=== PATIENT | female | born 1965 | race Caucasian/White ===

== ENCOUNTER 2018-10-24 18:13 | Observation (INO) | payer OTHER ==
[2018-10-24] MEDS ORDERED: Lorazepam 1 MG TAB ONE (18:32)
[2018-10-24 19:05] LABS: #Eosinphils 0.1 thou/uL (0.0-0.7); #Lymphocytes 2.3 thou/uL (1.20-3.40); #Monocytes 0.7 thou/uL (0.11-0.59); #Neutrophils 5.4 thou/uL (1.40-6.50); %Basophils 0.5 % (0.0-1.0); %Eosinophils 0.9 % (0.0-10.0); %Lymphocytes 26.7 % (21.0-51.0); %Monocytes 8.2 % (0.0-10.0); %Neutrophils 63.7 % (42.0-75.0); Hemoglobin 12.9 g/dL (12.0-16.0); Mean Corpuscular HGB CONC 32.4 g/dL (32.0-36.0); Mean Corpuscular Hemoglobin 26.6 pg (27.0-31.0); Mean Corpuscular Volume 82.3 fL (78.0-98.0); Mean Platelet Volume 7.2 fL (7.4-10.4); Platelet Count 349 thou/uL (130-400); RBC Distribution Width 12.7 % (11.5-14.5); Red Blood Cell (RBC) Count 4.86 mill/uL (4.20-5.40); White Blood Cell (WBC) Count 8.5 thou/uL (4.8-10.8)
[2018-10-24 19:12] LABS: INR-International Normal Ratio 0.9; Prothrombin Time 12.7 SEC (12.0-14.7)
[2018-10-24 19:13] LABS: D-Dimer Test 1.57 *mcg/mL (0.27-0.43)
--- NOTE | 2018-10-24 19:19 | RAD ---
PORTABLE CHEST: 10/24/18 HISTORY: Shortness of breath, chest pain. Focal nodular density in the left lung base may be vascular; however, underlying atelectasis, infiltr ate or nodule cannot be completely excluded. Lungs are otherwise clear. Vascular markings normal. Heart and mediastinum un remarkable. IMPRESSION: Indeterminate nodular density left lung base. Recommend elective followup AP and lateral views of the chest. POS: [facility]
[2018-10-24 19:27] LABS: ALT (SGPT) 46 U/L (8-55); AST (SGOT) 57 U/L (5-34); Albumin 3.6 g/dL (3.5-5.0); Alkaline Phosphatase 123 U/L (40-150); Anion Gap 14 mmol/L (10-20); BUN (Urea Nitrogen) 12 mg/dL (9.8-20.1); Bilirubin, Total 0.5 mg/dL (0.2-1.2); Calc. Creatinine Clearance 0 mL/min (70-130); Calcium 9.3 mg/dL (7.8-10.44); Carbon Dioxide 24 mmol/L (22-29); Chloride 104 mmol/L (98-107); Estimated GFR-MDRD 85; Globulin 3.6 g/dL (2.4-3.5); Glucose 122 mg/dL (70-105); Potassium 4.5 mmol/L (3.5-5.1); Protein, Total 7.2 g/dL (6.0-8.3); Sodium 137 mmol/L (136-145)
[2018-10-24] MEDS ORDERED: Lorazepam 2 MG/ML VIAL ONE (19:58)
--- NOTE | 2018-10-24 20:27 | CT ---
CTA CHEST WITH CONTRAST: 10/24/18 Multiple axial tomograms obtained through the chest with IV enhancement Following pulmonary angio protocol. Multiplanar reconstruction and 3D postprocessing obtained. INDICATIONS: Shortness of breath. FINDINGS: Pulmonary arteries show adequate opacification. No evidence of pulmonary Embolus identified. The lungs showed no evidence of infiltrate or effusion. Mild atelectasis in the lung bases posteriorl y. Thoracic aorta unremarkable with no evidence of dissection. Mediastinum unremarkable. IMPRESSION: 1. No evidence of pulmonary embolus. 2. No acute lung process. POS: [facility]
[2018-10-24 20:33] LABS: Bilirubin Negative (Negative); Blood, Urine Negative (Negative); Clarity CLEAR (Clear); Glucose, Urine (Dipstick) Negative (Negative); Leukocyte Negative (Negative); Nitrite Negative (Negative); Protein, Urine (Dipstick) Negative (Neg-Trace); Specific Gravity, Urine 1.016 (1.002-1.036); Urobilinogen 0.2 mg/dL (0.2-1.0)
--- NOTE | 2018-10-24 20:42 | CT ---
CT CERVICAL SPINE NONCONTRAST: 10/24/18 at 7:22 p.m. HISTORY: 53-year-old female status post recent cervical spine surgery five days ago presents with dyspnea and cervicalgia at surgical site. COMPARISON: None. FINDINGS: There are anterior metallic plate and screws at C5, C6, and C7. There are metallic markers for interb omar spacers at C5-6 and C6-7 disc spaces, which are slightly widened. There has been shaving of the i nferior end plates of C5 and C6. The rest of the vertebral body heights are maintained. Alignment is normal. There is a moderate sized intermediate-density fluid collection containing a small amount of gas in the retropharyngeal space, from the C1-2 level down to the T1-2 level. This collection displac es the larynx and hypopharynx anteriorly. The right piriform sinus is partially effaced. IMPRESSION: 1. Status post anterior cervical discectomy and fusion at C5-6-7. 2. Moderate sized retropharyngeal fluid collection consistent with recent postsurgical hematoma. 3. In general, this soon after surgery, it is difficult to distinguish expected usual postsurgic al hematomas from infected ones, on any imaging modality. LULA Amin POS: [facility]
[2018-10-24] MEDS ORDERED: Morphine 4 MG/ML VIAL ONE (21:06)
[2018-10-24] MEDS ORDERED: Dexamethasone 10 MG/ML VIAL ONE (21:57)
[2018-10-24] MEDS ORDERED: Fleet Enema 133 ML BOT PR PRN (22:03)
[2018-10-24] MEDS ORDERED: Acetaminophen 325 MG TAB PO PRN (22:03)
[2018-10-24] MEDS ORDERED: Promethazine HCl 25 MG/ML VIAL IM PRN (22:03)
[2018-10-24] MEDS ORDERED: Milk Of Magnesia 30 ML UDCUP PO PRN (22:03)
[2018-10-24] MEDS ORDERED: Acetaminophen/Codeine 30-300mg Tablet PO PRN (22:03)
[2018-10-24] MEDS ORDERED: traMADol HCl 50 MG TAB PO PRN (22:03)
[2018-10-24] MEDS ORDERED: tiZANidine HCl 4 MG TAB PO PRN (22:03)
[2018-10-24] MEDS ORDERED: Bisacodyl 10 MG SUPP PR PRN (22:03)
[2018-10-24] MEDS ORDERED: Mag-Al 1200 mg/1200 mg/30 ML UDCUP PO PRN (22:03)
[2018-10-24] MEDS: Sodium Chloride 0.9% 1,000 ML IV SCH (23:42)
[2018-10-24] MEDS: HYDROcodone/Acetaminophen 7.5/325 mg Tablet PO PRN (23:43)
[2018-10-24 23:57] VITALS: BMI 33.0
--- NOTE | 2018-10-25 00:42 | HP ---
30-minute patient evaluation, in which greater than 50% of the exam was spent counselling and coordinating the patient's care. Remainder of the exam was spent in reviewing the patient's medical records and appropriate imaging studies. CHIEF COMPLAINT: Feeling of breathing difficulties, status post C5-C6 and C6-C7 ACDF. HISTORY OF PRESENT ILLNESS: Ms. Humphrey is a 53-year-old female, presents to [facility] for the above complaints. She underwent an ACDF, C5-C6 and C6-C7 on Friday with Dr. Avilez. The patient notes, over the past day or two, feelings of difficulty breathing, especially when lying flat. She is tolerating a regular diet and is able to swallow pills, but states she does have a feeling of fullness in her throat. She does have a history of anxiety. She is also on 1 mg daily prednisone for history of [place] disease. A CT scan was obtained that shows some minimal displacement of the larynx with normal postoperative fluid collection in the prevertebral space. The patient's accompanies her and provides some history. PHYSICAL EXAMINATION: The patient is slightly sleepy, but just received some narcotic pain medication. Otherwise, she awakens easily and is appropriate. She appears to have full strength in the right upper and right lower extremity with baseline weakness in the left lower extremity after a previous back surgery and some mild weakness in the left upper extremity, which the patient states is baseline. She does complain of some continued shoulder pain, but again is able to completely lift the hand off the bed and has only mild weakness, especially into the shoulder and deltoid region. There is no tenderness to palpation around the incision and it is covered with Steri-Strips and is dry. There is no fullness at the incision site and no tension on the wound. There was no active drainage from the wound. IMPRESSION AND DIAGNOSES: Status post C5 through C7 anterior cervical discectomy and fusion on 10/19/[address] Avilez. PLAN: Given the patient's feeling of fullness and difficulty swallowing, we will admit her for overnight observation including observation of her oxygen status. Again, the patient is tolerating pills. I have discussed with her normal postoperative healing and that it will take our bodies 12 to 18 months postoperatively to heal and some continued posterior neck and left upper extremity symptoms will improve with time. The patient understands. I will put her on a full liquid diet and she may have pills as tolerated. We will provide 10 mg of Decadron in the ER and continue her prednisone for [place] disease. We hope to discharge her tomorrow after some observation and a dosage of steroids. Please call with any changes in the patient's neurologic status. Job ID: [id number]
[2018-10-25] MEDS: HYDROcodone/Acetaminophen 7.5/325 mg Tablet PO PRN ×3 (05:07→12:26)
[2018-10-25] MEDS: Sodium Chloride 0.9% 1,000 ML IV SCH (11:16)
[2018-10-25 11:39] VITALS: BP 136/86; TEMP 97.1
--- NOTE | 2018-10-25 12:06 | PRG ---
DATE OF SERVICE: 10/25/[address] Gilson Hyatt. Ms. Humphrey is now hospital day #1, being readmitted for some feelings of swallowing difficulties and breathing difficulties. She states today, she is feeling slightly better. She continues to have left upper extremity complaints and intermittent functional subjective weakness in the arm and lower extremity, again that is baseline. At this time, she did receive 10 mg of decadron in the ER last night. She has no hoarseness or muscled voice on examination. Her incision is clean, dry, and intact and covered with Steri-Strips. There is no drainage from the incision. There is no tension on the incision. We will discharge the patient today. She will follow up with Dr. Avilez as scheduled. Please call with any questions. Job ID: [id number]
== END 2018-10-25 13:35 | disposition home or self-care (01) ==
LOC: ERS 18:13 → SURG A 21:55
PROVIDERS: ADMIT Surgery; ATTEND Surgery
DX: R06.02 Shortness of breath (principal); F41.9 Anxiety disorder, unspecified; E27.1 Primary adrenocortical insufficiency; Z98.1 Arthrodesis status; Z88.5 Allergy status to narcotic agent; Z88.8 Allergy status to other drugs, medicaments and biological substances; Z79.52 Long term (current) use of systemic steroids; Z79.899 Other long term (current) drug therapy
CPT/HCPCS: 71045; 71275; 72125; 80053; 81003; 84484; 85025; 85379; 85610; 93005; 96361; 96374; 96375; G0378; J1100; J2060; J2270

== ENCOUNTER 2019-01-16 16:40 | Emergency (ER) | payer SELFPAY ==
[2019-01-16 18:20] LABS: #Lymphocytes 1.8 thou/uL (1.20-3.40); #Monocytes 0.7 thou/uL (0.11-0.59); %Basophils 0.4 % (0.0-1.0); %Eosinophils 0.1 % (0.0-10.0); %Lymphocytes 15.3 % (21.0-51.0); %Monocytes 5.7 % (0.0-10.0); %Neutrophils 78.5 % (42.0-75.0); Mean Corpuscular HGB CONC 30.6 g/dL (32.0-36.0); Mean Corpuscular Hemoglobin 25.8 pg (27.0-31.0); Mean Corpuscular Volume 84.4 fL (78.0-98.0); Mean Platelet Volume 8.1 fL (7.4-10.4); Platelet Count 279 thou/uL (130-400); RBC Distribution Width 12.5 % (11.5-14.5); Red Blood Cell (RBC) Count 5.04 mill/uL (4.20-5.40); White Blood Cell (WBC) Count 11.5 thou/uL (4.8-10.8)
--- NOTE | 2019-01-16 18:30 | CT ---
CT BRAIN NONCONTRAST: 01/16/19 HISTORY: 53-year-old female with headache, dizziness, blurred vision and syncope. FINDINGS: There is no midline shift or any other mass effect. There is no evidence of acute intracranial hemor rhage, large cortical infarct, obstructive hydrocephalus, or extraaxial fluid collection. The calvar ium is intact. A round 0.9 cm focal hypodense lesion at the posterior inferior edge of the left basal ganglia is consistent with a dilated [place] space, rather than an old lacunar infarction. IMPRESSION: No acute intracranial findings. nikki pepper POS: [facility]
[2019-01-16 18:33] LABS: ALT (SGPT) 13 U/L (8-55); AST (SGOT) 14 U/L (5-34); Albumin 4.1 g/dL (3.5-5.0); Alkaline Phosphatase 79 U/L (40-150); Anion Gap 14 mmol/L (10-20); BUN (Urea Nitrogen) 14 mg/dL (9.8-20.1); Bilirubin, Total 0.4 mg/dL (0.2-1.2); CK (CPK) 83 U/L (29-168); Calc. Creatinine Clearance 0 mL/min (70-130); Calcium 9.7 mg/dL (7.8-10.44); Carbon Dioxide 23 mmol/L (22-29); Chloride 107 mmol/L (98-107); Estimated GFR-MDRD 76; Globulin 3.4 g/dL (2.4-3.5); Glucose 89 mg/dL (70-105); Potassium 3.8 mmol/L (3.5-5.1); Protein, Total 7.5 g/dL (6.0-8.3); Sodium 140 mmol/L (136-145)
[2019-01-16 18:37] LABS: Troponin I Less than 0.010 ng/mL (< 0.028)
[2019-01-16] MEDS ORDERED: Morphine 4 MG/ML VIAL ONE (18:53)
[2019-01-16] MEDS ORDERED: Ondansetron PF 4 MG/2 ML Vial ONE (18:53)
--- NOTE | 2019-01-16 18:56 | CT ---
CT CERVICAL SPINE NONCONTRAST: 01/16/19 HISTORY: 53-year-old female with upper extremity and lower extremity weakness and numbness (hypesthesia). COMPARISON: 10/24/18 FINDINGS: Again noted are the ACDF changes with hardware at C5-6-7. Previously demonstrated retropharyngeal pos toperative fluid collection (hematoma) has resolved. Vertebral body heights are maintained. Multileve l degenerative facet changes, mostly mild on the left, and mild and moderate on the right at several levels. Worst level is right C4-5 severe facet DJD. Alignment is normal. Vertebral body heights are m aintained. No fracture. C1-2: No central stenosis. C2-3: No central or neural foraminal stenosis. C3-4: No high grade central stenosis. Bilateral uncinate process osteophytes, right slightly larger t hook left. Moderate right neural foraminal stenoses. Mild left neural foraminal stenosis. C4-5: Possible central and bilateral paracentral disc herniation. Severe right facet degenerative hy pertrophy, plus moderately large right uncinate process osteophytes, result in severe right neural fo raminal stenosis. Smaller left uncinate process osteophytes result in moderate left neural foraminal stenosis. Moderate to severe central spinal canal stenosis. C5-6: Moderate to severe central spinal canal stenosis. Moderately large bilateral uncinate process o steophytes, left larger than right. Moderate to severe right neural foraminal stenosis. Severe left n eural foraminal stenosis. Moderate to severe central spinal canal stenosis. Severe left neural forami nal stenosis. C6-7: Bilateral uncinate process osteophytes. Moderate to severe right neural foraminal stenosis. Sev ere left neural foraminal stenosis. Moderate central spinal canal stenosis. C7-T1: No high grade central stenosis. No high grade neural foraminal stenosis. IMPRESSION: 1. Status post anterior cervical discectomy and fusion at C5-6-7. 2. High grade central spinal canal stenosis, especially at C4-5. 3. Multilevel severe neural foraminal stenosis. 4. Interval resolution of the previously demonstrated postsurgical retropharyngeal fluid collect ion. LULA Amin POS: [facility]
== END 2019-01-16 19:39 | disposition home or self-care (01) ==
LOC: ERS 16:40
DX: M54.12 Radiculopathy, cervical region (principal); E27.1 Primary adrenocortical insufficiency; F20.9 Schizophrenia, unspecified; F31.9 Bipolar disorder, unspecified; Z79.899 Other long term (current) drug therapy
CPT/HCPCS: 70450; 72125; 80053; 82550; 84484; 85025; 93005; 94760; 96374; 96375; J2270; J2405

== ENCOUNTER 2019-11-16 19:02 | Observation (INO) | payer SELFPAY ==
[~2019-11-16 19:02] MED LIST: Iopamidol-370 76% 500 ML 1 ML ONE
[2019-11-16 20:51] LABS: #Basophils 0.1 thou/uL (0.0-0.2); #Eosinphils 0.1 thou/uL (0.0-0.7); #Lymphocytes 2.9 thou/uL (1.20-3.40); #Monocytes 0.9 thou/uL (0.11-0.59); %Basophils 0.7 % (0.0-1.0); %Eosinophils 0.7 % (0.0-10.0); %Lymphocytes 26.6 % (21.0-51.0); %Monocytes 8.5 % (0.0-10.0); %Neutrophils 63.6 % (42.0-75.0); Hemoglobin 12.4 g/dL (12.0-16.0); Mean Corpuscular Hemoglobin 25.8 pg (27.0-31.0); Mean Corpuscular Volume 80.7 fL (78.0-98.0); Mean Platelet Volume 7.6 fL (7.4-10.4); Platelet Count 280 thou/uL (130-400); RBC Distribution Width 12.7 % (11.5-14.5); Red Blood Cell (RBC) Count 4.79 mill/uL (4.20-5.40); White Blood Cell (WBC) Count 10.9 thou/uL (4.8-10.8)
[2019-11-16 20:56] LABS: PTT 28.6 SEC (22.9-36.1)
[2019-11-16 20:57] LABS: INR-International Normal Ratio 0.9
[2019-11-16 21:11] LABS: ALT (SGPT) 45 U/L (8-55); AST (SGOT) 38 U/L (5-34); Albumin 4.3 g/dL (3.5-5.0); Alkaline Phosphatase 130 U/L (40-110); Anion Gap 16 mmol/L (10-20); BUN (Urea Nitrogen) 14 mg/dL (9.8-20.1); Bilirubin, Total 0.6 mg/dL (0.2-1.2); Calc. Creatinine Clearance 0 mL/min (70-130); Calcium 9.2 mg/dL (7.8-10.44); Carbon Dioxide 23 mmol/L (22-29); Chloride 106 mmol/L (98-107); Estimated GFR-MDRD 69; Globulin 3.3 g/dL (2.4-3.5); Glucose 95 mg/dL (70-105); Potassium 4.2 mmol/L (3.5-5.1); Protein, Total 7.6 g/dL (6.0-8.3); Sodium 141 mmol/L (136-145)
--- NOTE | 2019-11-16 21:31 | CT ---
NONCONTRAST CT HEAD: 11/16/19 HISTORY: Level I stroke. Patient complains of left sided facial pain and left sided weakness as well as numbne ss. Symptoms currently improving. COMPARISON: 01/16/19. FINDINGS: There is a stable low density area seen within the inferior aspect of the left basal ganglia likely r elated to dilated perivascular space as opposed to a remote lacunar infarction. This is a stable find ing. There is no evidence of an acute cortical infarction, hemorrhage, mass effect or midline shift. The ventricular system is normal in size, shape and position. There is minimal mucosa thickening in the left maxillary antrum with tiny air fluid level present. N o other interval change. IMPRESSION: 1. No acute intracranial abnormalities demonstrated. 2. Above findings discussed with Dr. Smith in the Emergency Department on 11/16/19 at 2043 hours . POS: [facility]
[2019-11-16] MEDS ORDERED: Aspirin 325 MG TAB ONE (22:12)
[2019-11-16] MEDS ORDERED: Clindamycin/D5W 900 mg/50 ml Premix Bag ONE (22:12)
[2019-11-16] MEDS ORDERED: Ketorolac Tromethamine 30 MG/ML VIAL ONE (22:12)
--- NOTE | 2019-11-16 22:18 | PDOC.FPRHP ---
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 She states her infection began 2 days ago with swelling on her L side. Today she noticed moving down her neck. She denies fever, chills, N/V, diarrhea. She did not stress dose her prednisone for the infection. While in the emergency department pt became weak in all 4 extremities which she thought was secondary to anxiety. She became anxious after being exposed to a large crowd in the ED waiting area. She did not have a syncopal episode. She endorses L > R weakness, change in pain sensation on the L side. She has hx of L foot drop, decreased sensation/motor below the L knee due to back surgeries. ED Course: In the ED pt was found to have buccal cellulitis, abscess but otherwise vitals WNL. She was started on clindamycin. CT head, CTA head/neck were negative for stenosis, stroke. - Allergies/Adverse Reactions Allergies Allergy/AdvReac Type Severity Reaction Status Date / Time codeine Allergy Severe Verified 10/25/18 00:11 nicotine Allergy Severe Verified 10/25/18 00:11 - Home Medications Medication Instructions Recorded Confirmed Type Fludrocortisone Acetate [Florinef] 0.1 mg PO BID 10/25/18 11/17/19 History HYDROcodone Bit/APAP 5/325 [[place]] 1 tab PO Q6H PRN 10/25/18 History [place] Carbonate 300 mg PO BID 10/25/18 11/17/19 History Vortioxetine Hydrobromide 10 mg PO DAILY 10/25/18 11/17/19 History [Trintellix] predniSONE 5 mg PO DAILY 10/25/18 11/17/19 History tiZANidine HCl [Zanaflex] 2 mg PO PRN PRN 10/25/18 11/17/19 History Brexpiprazole [Rexulti] 4 mg PO DAILY 11/17/19 11/17/19 History BuPROPion XL [Wellbutrin XL] 150 mg PO DAILY 11/17/19 11/17/19 History PARoxetine HCl [Paxil] 10 mg PO DAILY 11/17/19 11/17/19 History - History PMHx: Bipolar I, GERD, Pickens's, HLD, hx of syncope PSHx: L3-L5 fusion, Cervical Fusion, , partial hysterectomy FHx: no hx of CVA, ID in family Social: denies alcohol, drug use, tobacco use currently; 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 denies: nasal congestion Respiratory: denies: cough, congestion, shortness of breath Cardiovascular: denies: chest pain, palpitation Gastrointestinal: denies: nausea, vomiting, diarrhea, constipation Genitourinary: denies: incontinence, dysuria, polyuria Skin: denies: rashes Musculoskeletal: denies: pain, tenderness Neurological: reports: numbness. denies: syncope Psychological: denies: anxiety, depression - Vital signs BP: 139/92 HR: 91 RR: 20 Tmax: 98.0 Pox: 97% on RA Wt: 81.6 kg - Physical Exam Constitutional: NAD, awake, alert and oriented HEENT: PERRLA, EOMI Neck: supple, FROM Heart: RRR, normal S1/S2, no murmurs/rubs/gallops Lungs: CTAB, no respiratory distress, good air movement Abdomen: soft, non-tender -Neurological: Left sided decreased sensation to pain, strength 5/5 on L side, only deficit is no sensation, strength to L foot Mild L facial droop, decreased strength with squint, other CN II-XII intact Heme/Lymphatic: no purpura, no petechia Psychiatric: normal mood and affect, good judgment and insight FMR H&P: Results - Labs Result Diagrams: 11/16/19 20:41 11/16/19 20:41 Lab results: WBC 10.9 thou/uL (4.8-10.8) H 11/16/19 20:41 Hgb 12.4 g/dL (12.0-16.0) 11/16/19 20:41 Hct 38.7 % (36.0-47.0) 11/16/19 20:41 MCV 80.7 fL (78.0-98.0) 11/16/19 20:41 Plt Count 280 thou/uL (130-400) 11/16/19 20:41 Neutrophils % 63.6 % (42.0-75.0) 11/16/19 20:41 Sodium 141 mmol/L (136-145) 11/16/19 20:41 Potassium 4.2 mmol/L (3.5-5.1) 11/16/19 20:41 Chloride 106 mmol/L (98-107) 11/16/19 20:41 Carbon Dioxide 23 mmol/L (22-29) 11/16/19 20:41 BUN 14 mg/dL (9.8-20.1) 11/16/19 20:41 Creatinine 0.86 mg/dL (0.6-1.1) 11/16/19 20:41 Glucose 95 mg/dL (70-105) 11/16/19 20:41 Calcium 9.2 mg/dL (7.8-10.44) 11/16/19 20:41 Total Bilirubin 0.6 mg/dL (0.2-1.2) 11/16/19 20:41 AST 38 U/L (5-34) H 11/16/19 20:41 ALT 45 U/L (8-55) 11/16/19 20:41 Alkaline Phosphatase 130 U/L (40-110) H 11/16/19 20:41 Creatine Kinase 98 U/L (29-168) 11/16/19 20:41 Serum Total Protein 7.6 g/dL (6.0-8.3) 11/16/19 20:41 Albumin 4.3 g/dL (3.5-5.0) 11/16/19 20:41 - Radiology Interpretation CT scan - head Status: report reviewed by me (Subq inflammation on L side, periapical abscesses , no evidence of stenosis in vasculature) FMR H&P: A/P - Problem List (1) Periapical abscess Current Visit: Yes Status: Acute Code(s): K04.7 - PERIAPICAL ABSCESS WITHOUT SINUS (2) Cellulitis, face Current Visit: Yes Status: Acute Code(s): L03.211 - CELLULITIS OF FACE (3) TIA (transient ischemic attack) Current Visit: Yes Status: Acute Code(s): G45.9 - TRANSIENT CEREBRAL ISCHEMIC ATTACK, UNSPECIFIED - Plan Pt is a 54 yo female with PMH GERD, Pickens's,Syncopal episodes, Bipolar I who presents for buccal abscess, CVA vs TIA r/o: # Buccal abscess - ketorolac prn pain - clindamycin cont from ED - Consult for oral surgery placed but have not contacted; at day team's discretion # CVA vs TIA - MRI pending - Lipids pending - Echo pending - swallow study # Hx of Syncopal Episodes Dr. Goznalez referred pt to Dr. Werner but pt could not afford to be seen. Possibly cardiac related. Pt is on tele, could be paroxysmal a-fib which warranted echo above. Possibly secondary to hypotension with Pickens's or foot drop. Pt does become lightheaded. # GERD - Continue home meds # Bipolar I - Will continue home meds but need to confirm in the AM. Medications in our system are different than what was confirmed with nurse reconciling medications. # Addisons - Increased Prednisone to 10 mg BID for 3 days as a stress dose with infection Fluids: 150 mls/hr Diet: HH VTE: Lovenox Code: DNR Dispo: < 48 hrs FMR H&P: Upper Level - Plan Date/Time: 11/16/19 2196 ITurner MD, have evaluated this patient and agree with findings/plan as outlined by pharmacy intern resident. Pertinent changes/additions are listed here. Amparo Humphrey is a 54 year old F with a PMH of Pickens's disease, Bipolar I disorder , Chronic Back Pain, and Schizophrenia who presented to the ED with a 2 day history of progressively worsening dental pain and left sided facial swelling. Associated pain with eating. Denies any fever, chills, difficulty swallowing or breathing, sore throat, n/v, abdominal pain. Never had pain like this in the past. While in the waiting room, states that she developed left sided weakness and numbness. Stated that symptoms were already starting to improve once she made it to an ER room. On further questioning, states that these symptoms have been off and on for the last few months, sometimes making it difficult for her to walk. States that she has been told that it could be 2/2 psychiatric medications. In the ED, vitals were stable and wnl. Labs were significant for WBC count 10.9, no left shift, normal PT/INR, remainder of CBC and CMP wnl. CT brain was done that showed no acute findings, CTA head and neck was unremarkable for occlusion or stenosis. Did show left facial subcutaneous soft tissue swelling without abscess, few reactive LN and few periapical periapical abscesses involving mandibular molars. On exam, left sided swelling noted with ttp, no oral lesions seen, tender left mandibular molars. No drainage. RRR, no murmurs. Lungs CTAB. In the ED, she received aspirin, IV clindamycin and toradol. Admitting patient to stroke obs for CVA r/o. Ordered brain MRI, Echo. Continue aspirin. Will continue IV antibiotics and will likely transition to po soon, no signs of sepsis. Will consider consulting OMFS in morning. Anticipate hospital stay <48 hours. Please see pharmacy intern note above for full H&P, which I have reviewed and agree with.
--- NOTE | 2019-11-16 22:42 | CT ---
CT FACIAL BONES WITH IV CONTRAST: 11/16/19 HISTORY: Dental pain and left sided facial swelling for two days. COMPARISON: None. FINDINGS: While there are no enlarged lymph nodes by CT size criteria, there are mild nonspecific increase in l ymph nodes within the neck bilaterally predominantly involving level II lymph nodes. Mildly prominent lymph node is seen adjacent to the left submandibular gland measuring 1 cm in short axis dimension. No mass or fluid collection is seen within the visualized neck soft tissues. The bilateral parotid a nd submandibular glands have a normal CT appearance. Mucosa thickening is present in the left maxillary antrum with tiny air fluid level present. Remainde r of the paranasal sinuses as well as mastoid air cells are clear. Stable mandibular joints have a normal appearance bilaterally without dislocation. There are a few de ntal caries involving left sided maxillary and mandibular teeth. There is a minimal periapical lucenc y involving a left maxillary molar. There is minimal subcutaneous soft tissue swelling seen adjacent to the left mandible without evidenc e of a fluid collection in this region. Mild degenerative and postsurgical change of the upper cervical spine are seen. Mucosa thickening is present in the left maxillary antrum. IMPRESSION: 1. Mild subcutaneous soft tissue swelling adjacent to the left mandible of uncertain etiology. T his may be related to inflammatory process. There is no fluid collection seen to suggest an abscess. 2. Mild increased number of lymph nodes within the visualized neck bilaterally which is overall nonspecific. These lymph nodes may be reactive in origin. 3. A few dental caries are seen involving the left maxillary and mandibular teeth with minimal p eriapical lucencies involving an anterior left maxillary molar as well as the most posterior left man dibular molar suggesting tiny periapical abscesses. POS: [facility]
--- NOTE | 2019-11-16 23:31 | CT ---
CT ANGIOGRAM HEAD AND NECK WITH IV CONTRAST AND 3D RECONSTRUCTIONS: 11/16/19 HISTORY: Left sided numbness with left facial pain and left sided weakness. Symptoms improving. COMPARISON: None. FINDINGS: Minimal vascular calcifications seen in the aortic arch. There is a common origin of the left common carotid artery and the innominate artery, but the origin of the great vessels are patent. The left saez bclavian, innominate, and bilateral common carotid arteries are patent. Portions of the right subclav shiv and right axillary artery obscured due to dense contrast in the subclavian and axillary veins. The bilateral internal and external carotid arteries are patent. Minimal vascular calcifications are seen involving the proximal left internal carotid artery. The vertebral arteries are codominant and patent bilaterally. The basilar artery is patent. Bilateral posterior cerebral arteries are patent. Posterior communicati ng artery on the right is visualized and patent. Posterior communicating artery on the left is very s mall in size which is a normal variant. The bilateral anterior cerebral and middle cerebral arteries are patent. No focal high grade stenosis or branch occlusion is appreciated. No intracranial aneurysm is seen within the limitations of the technique of this exam. There are degenerative and postsurgical changes involving the cervical spine. As noted on the CT scan of the facial bones, there are dental caries involving the left sided maxilla ry and mandibular teeth with periapical lucencies involving a few left sided mandibular molars. Subcu taneous soft tissue swelling is seen involving the adipose soft tissues on the left adjacent to the m andible without discrete fluid collection seen to suggest an abscess collection. There is increased number of lymph nodes within the neck bilaterally, also described on CT facial bon es which may be reactive in origin. No enlarged lymph nodes are seen by CT size criteria. There is dependent atelectasis within the visualized upper lung zones. There is a prominent calcification within the right lobe of the thyroid gland. IMPRESSION: 1. The bilateral internal carotid arteries as well as bilateral vertebral arteries are patent. 2. No high grade stenosis or branch occlusion is seen involving the [place] or vertebro basilar system. 3. Left sided facial subcutaneous soft tissue swelling at the level of the mandible without flui d collection seen to suggest an abscess. 4. Mild increased number of lymph nodes in the neck which may be reactive in origin. 5. Sinus disease involving the left maxillary antrum. 6. Left maxillary and mandibular dental caries with a few periapical abscesses involving left ma ndibular molars. POS: [facility]
[2019-11-17] MEDS ORDERED: Ondansetron ODT 4 MG TAB SL PRN (00:24)
[2019-11-17] MEDS ORDERED: HYDROcodone/Acetaminophen 5/325 mg Tablet PO PRN ×2 (00:24)
[2019-11-17] MEDS ORDERED: Ondansetron PF 4 MG/2 ML Vial IVP PRN (00:24)
[2019-11-17] MEDS ORDERED: Acetaminophen 325 MG TAB PO PRN (00:24)
[2019-11-17 00:53] VITALS: BMI 33.8
[2019-11-17] MEDS: Sodium Chloride 0.9% 1,000 ML IV SCH ×2 (01:39→09:54)
[2019-11-17] MEDS ORDERED: Acetaminophen 325 MG TAB PO SCH (02:15)
[2019-11-17] MEDS: Ketorolac Tromethamine 30 MG/ML VIAL IVP PRN ×2 (02:27→09:55)
[2019-11-17 05:08] LABS: #Basophils 0.1 thou/uL (0.0-0.2); #Eosinphils 0.1 thou/uL (0.0-0.7); #Lymphocytes 2.8 thou/uL (1.20-3.40); #Monocytes 0.8 thou/uL (0.11-0.59); #Neutrophils 4.2 thou/uL (1.40-6.50); %Basophils 1.3 % (0.0-1.0); %Eosinophils 1.1 % (0.0-10.0); %Lymphocytes 35.2 % (21.0-51.0); %Monocytes 10.1 % (0.0-10.0); %Neutrophils 52.3 % (42.0-75.0); Hemoglobin 10.7 g/dL (12.0-16.0); Mean Corpuscular HGB CONC 32.2 g/dL (32.0-36.0); Mean Corpuscular Hemoglobin 26.2 pg (27.0-31.0); Mean Corpuscular Volume 81.3 fL (78.0-98.0); Mean Platelet Volume 7.6 fL (7.4-10.4); Platelet Count 246 thou/uL (130-400); RBC Distribution Width 12.7 % (11.5-14.5); Red Blood Cell (RBC) Count 4.06 mill/uL (4.20-5.40); White Blood Cell (WBC) Count 8.1 thou/uL (4.8-10.8)
[2019-11-17 05:31] LABS: Anion Gap 12 mmol/L (10-20); BUN (Urea Nitrogen) 12 mg/dL (9.8-20.1); Calc. Creatinine Clearance 113 mL/min (70-130); Calcium 8.2 mg/dL (7.8-10.44); Carbon Dioxide 24 mmol/L (22-29); Cardiac Risk 2.8 (Less than 4.5); Chloride 109 mmol/L (98-107); Cholesterol 177 mg/dl (< 200 Desired); Estimated GFR-MDRD 79; Glucose 108 mg/dL (70-105); HDL Cholesterol 64 mg/dL (>60 Neg Risk); LDL Cholesterol, Calculated 92 mg/dL; Potassium 3.6 mmol/L (3.5-5.1); Sodium 141 mmol/L (136-145); Triglycerides 106 mg/dL (Less than 150)
[2019-11-17] MEDS ORDERED: Clindamycin/D5W 900 MG in Premix Bag 1 BAG IVPB SCH (06:00)
[2019-11-17] MEDS: Acetaminophen 325 MG TAB PO SCH ×2 (06:03→12:30)
[2019-11-17] MEDS ORDERED: predniSONE 20 MG TAB PO SCH (08:00)
--- NOTE | 2019-11-17 08:16 | MRI ---
MRI BRAIN WITHOUT CONTRAST: HISTORY: CVA CORRELATION: CT scan from 11/16/2019. FINDINGS: No restricted diffusion is seen. The ventricular size is appropriate and the basilar cisterns are pat ent.There is a dilated perivascular space in the left basal ganglia. No evidence of acute infarct, hemorrhage, midline shift or abnormal extra-axial fluid collections is seen. There is mucosal disease in the paranasal sinuses. IMPRESSION: No evidence of acute intracranial process.
--- NOTE | 2019-11-17 08:35 | CON ---
DATE OF CONSULTATION: 11/17/2019 HISTORY OF PRESENT ILLNESS: This is a 54-year-old female, who presented to the emergency room after a 2-week history of left-sided upper jaw pain with acute swelling on her left side. While in the emergency department, she became weak in all of her extremities. She believes it was secondary to anxiety, but she was admitted for medical workup. Oral Surgery is consulted for abscess of maxillary tooth. REVIEW OF SYSTEMS: The patient reports left-sided upper jaw pain. No drainage. Pain when chewing. PAST MEDICAL HISTORY: 1. Bipolar disorder. 2. Abram's disease. 3. Hyperlipidemia. 4. Gastroesophageal reflux disease. MEDICATIONS: 1. Hydrocodone 5 mg. 2. [place] carbonate. 3. Prednisone. 4. Tizanidine. 5. Bupropion. 6. Paroxetine. 7. Trintellix. 8. Florinef. 9. Rexulti. PAST SURGICAL HISTORY: 1. Cervical fusion. 2. L3 through L5 fusion. 3. . 4. Partial hysterectomy. SOCIAL HISTORY: Negative for tobacco, alcohol, or recreational drug use. Has a remote history of methamphetamine use. PHYSICAL EXAMINATION: VITAL SIGNS: Stable. Afebrile. GENERAL: The patient is lying in bed comfortably, in no acute distress. HEAD: Normocephalic, atraumatic. EYES, EARS, NOSE, AND NECK: All within normal limits. MOUTH: The patient has mandibular range of motion. The TMJ is bilaterally within normal limits. There is very mild vestibular gingival edema associated with fractured retained root of tooth #13 with tenderness to palpation. There is no purulence appreciated or fluctuance palpated. The patient has generalized dental caries throughout dentition, is partially edentulous. Tongue, full range of motion. Floor mouth is soft. No palpable draped. No appreciable submandibular edema. LABORATORY RESULTS: White blood cell count 10.9, hemoglobin 12.4, hematocrit 38, and platelets 280. Chemistry, all within normal limits. IMAGING DATA: CT of the face reveals periapical radiolucency associated with tooth #13. No visible fluid collection or drainable abscess is evident. ASSESSMENT: A 54-year-old female with a fractured symptomatic tooth #13. PLAN: The patient can be discharged to clinic for extraction of tooth #13 after medical workup is complete. While the patient is admitted, continue clindamycin. Recommend Peridex mouth rinse 15 mL swish and spit b.i.d. Job ID: [id number]
[2019-11-17] MEDS ORDERED: FLU VACC QS2019-20(6MOS UP)/PF 60 MCG/0.5 ML SYRINGE IM ONE (09:00)
[2019-11-17] MEDS ORDERED: Fludrocortisone Acetate 0.1 MG TAB PO SCH (09:00)
[2019-11-17] MEDS ORDERED: Aspirin 81 mg Enteric Coated Tablet PO SCH (09:00)
[2019-11-17] MEDS ORDERED: Prevnar 13-Val Conj/PF 0.5 ML SYRINGE IM ONE (09:00)
[2019-11-17] MEDS ORDERED: Enoxaparin Sodium 40 MG/0.4 ML SYRINGE SC SCH (09:00)
[2019-11-17] MEDS ORDERED: Famotidine 20 MG TAB PO SCH (09:00)
--- NOTE | 2019-11-17 11:15 | HP ---
I have discussed the case with Dr. Vignesh Calles and agree with his assessment and plan and H and P. HISTORY OF PRESENT ILLNESS: Briefly, Ms. Humphrey is a pleasant 54-year-old white female who presented with a buccal infection of her left cheek. She was admitted and started on intravenous Cleocin. She was seen by the oral surgeon who said she could be seen for further possible dental extraction in his office after discharge. Meanwhile in the ER, she developed some left-sided weakness, which seemed to resolve when she was removed from a crowed waiting room. A subsequent CT of the head and CT of the head and neck were all negative. A brain MRI was also negative. When I examined the patient later in the morning, she was looking and feeling much better. Her left facial swelling had much improved and she will be discharged to follow up with the oral surgeon this afternoon. PHYSICAL EXAMINATION: VITAL SIGNS: Her blood pressure was 139/92, her heart rate was 90, respirations 20. She is afebrile. Her room air pulse ox is 97%. GENERAL: She is awake, alert, and oriented, no distress. EAR, NOSE, AND THROAT: She does have several missing teeth and caries. The left buccal swelling seems to have greatly abated. NECK: Supple. CARDIAC: Heart rhythm regular. No gallop or murmur noted. LUNGS: Clear without rales or wheezes. ABDOMEN: Flat and soft. No guarding, rebound, or rigidity. She had strength 5/5 equal bilaterally with some sensory deficit on the left side. She had a mild facial droop, otherwise normal exam. LABORATORY DATA: CBC; white count was initially 10,900, it dropped to 8100. Hemoglobin is 12.4, hematocrit 38.7 with an MCV of 80.7. Chemistries, sodium 141, potassium 4.2, chloride 106, bicarb 23, BUN 14, and creatinine 0.86. Had a very slight elevation of the AST to 38 and the alkaline phosphatase to 130. She had extensive imaging done beginning as follows. Her brain CT showed no acute intracranial abnormalities. Her CTA of the head and neck, the bilateral internal carotid arteries as well as bilateral vertebral arteries are patent. There was no high-grade stenosis or branch occlusion seen involving the [place] or the vertebral basilar system. She had a left-sided facial subcutaneous soft tissue swelling at the level of the mandible without evidence of an abscess. She had a mild number of increase in lymph nodes in the neck. She had sinus disease involving the left maxillary antrum. She had a left maxillary and mandibular dental caries with a few periapical abscesses involving the left mandibular molars. Brain MRI showed no evidence of an acute intracranial process. As stated, she was also seen in consultation by Dr. Esteban. He detected a fracture symptomatic tooth #13. He said the patient could be discharged to clinic for extraction of tooth #13. He recommend that we continue Cleocin. The patient was discharged in much improved condition and will follow up with Dr. Esteban this afternoon. ADMISSION AND DISCHARGE DIAGNOSES: 1. Buccal cellulitis. 2. Several dental abscesses. Discharged on Cleocin. Job ID: [id number]
[2019-11-17 11:57] VITALS: BP 115/65; TEMP 98
[2019-11-17] MEDS ORDERED: Chlorhexidine Gluconate 15 ML UDCUP SSP SCH (21:00)
--- NOTE | 2019-11-18 19:58 | DIS ---
DATE OF ADMISSION: 11/16/2019 DATE OF DISCHARGE: 11/17/2019 ADMITTING RESIDENT: Vignesh Calles DO ADMITTING ATTENDING: Saroj Reveles MD DISCHARGE RESIDENT: Crystal Dee MD DISCHARGE ATTENDING: Saroj Reveles MD CONSULTS: Oral Surgery, Dr. Esteban. PROCEDURES: None. IMAGING: Brain CT: No acute intracranial abnormalities demonstrated. CT angiography: Bilateral internal carotid arteries as well as bilateral vertebral arteries are patent. No high-grade stenosis or branch occlusion is seen involving the [place] or vertebrobasilar system. Left-sided facial subcutaneous soft tissue swelling at the level of the mandible without fluid collection seen to suggest an abscess. Mild increased number of lymph nodes in the neck, which may be reactive in origin. Sinus disease involving the left maxillary antrum. Left maxillary and mandibular dental caries with a few periapical abscesses involving left mandibular molars. Facial bone CT: Mild subcutaneous soft tissue swelling adjacent to the left mandible of uncertain etiology. This may be related to inflammatory process. There is no fluid collection seen to suggest an abscess. Mild increased number of lymph nodes within the visualized neck bilaterally, which is overall nonspecific. These lymph nodes may be reactive in origin. The dental caries are seen involving the left maxillary and mandibular teeth with minimal periapical lucencies involving anterior left maxillary molar as well as the most posterior left mandibular molar. Echocardiogram: EF 55% to 60%. Mild mitral regurgitation. [id number] tricuspid regurgitation. Mild pulmonic regurgitation. PRIMARY DIAGNOSES: Buccal cellulitis and tooth abscess, iatrogenic muscle weakness. SECONDARY DIAGNOSES: History of syncopal episodes, gastroesophageal reflux disease, bipolar I, [place] disease. DISCHARGE MEDICATIONS: 1. Chlorhexidine gluconate 15 mL swish and spit. 2. 3 mg Rexulti p.o. daily. 3. 150 mg Wellbutrin p.o. daily. 4. 300 mg clindamycin p.o. q.6. 5. 0.1 mg of Florinef p.o. b.i.d. 6. 300 mg gabapentin p.o. t.i.d. 7. 300 mg lithium p.o. b.i.d. 8. 20 mg Paxil p.o. daily. 9. 7.5 mg prednisone p.o. b.i.d. 10. 1 mg tizanidine p.o. q.8 hours p.r.n. 11. 10 mg Trintellix p.o. daily. DISCONTINUED MEDICATIONS: 1. Acetaminophen p.r.n. 2. 81 mg aspirin daily. 3. IV clindamycin. 4. Lovenox. 5. Famotidine. 6. Toradol. 7. Zofran p.r.n. HISTORY OF PRESENT ILLNESS/HOSPITAL COURSE: The patient is a 54-year-old female with past medical history of psychiatric issues, GERD, Abram disease, who presented for a left buccal infection. While she was in the ER, she began to have weakness in all 4 extremities that the patient said that was secondary to anxiety, but when she was admitted to the hospital, she was admitted for a TIA/ CVA rule out as well. Brain MRI demonstrated no evidence of acute intracranial processes. [place] [facility] [place] and recommended to have the patient continue clindamycin and upon discharge, go over to dental clinic so that her tooth could be extracted as this is likely a tooth abscess causing infection. The patient was evaluated on the day of discharge and found to be in stable condition. It was discussed with her that the MRI findings do not suggest any sort of stroke, and it was discussed that this is likely anxiety related. Discussed with the patient to follow up with Dr. Esteban in the office on the day of discharge for tooth extraction. The patient was agreeable with the plan of care and had no questions. DISPOSITION: Stable. DISCHARGE INSTRUCTIONS: 1. Location: Home. 2. Diet: Heart healthy. 3. Activity: As tolerated. 4. Follow up with Dr. Esteban within 1 day and with [facility] within 7 days. Job ID: [id number] MTDD
== END 2019-11-17 14:24 | disposition home or self-care (01) ==
LOC: ERS 19:02 → 2SW 22:01
PROVIDERS: ADMIT Family Medicine; ATTEND Family Medicine
DX: K12.2 Cellulitis and abscess of mouth (principal); K02.9 Dental caries, unspecified; K04.7 Periapical abscess without sinus; R53.1 Weakness; K21.9 Gastro-esophageal reflux disease without esophagitis; F31.9 Bipolar disorder, unspecified; E27.1 Primary adrenocortical insufficiency; J32.0 Chronic maxillary sinusitis; M19.90 Unspecified osteoarthritis, unspecified site; M21.372 Foot drop, left foot; F17.200 Nicotine dependence, unspecified, uncomplicated; F20.9 Schizophrenia, unspecified; I08.3 Combined rheumatic disorders of mitral, aortic and tricuspid valves; F15.11 Other stimulant abuse, in remission; Z79.52 Long term (current) use of systemic steroids; Z79.899 Other long term (current) drug therapy; Z88.5 Allergy status to narcotic agent; Z88.8 Allergy status to other drugs, medicaments and biological substances; Z98.1 Arthrodesis status
CPT/HCPCS: 36415; 36416; 70450; 70487; 70496; 70498; 70551; 80048; 80053; 80061; 82550; 84484; 85025; 85610; 85730; 90471; 90670; 90686; 93005; 93306; 96365; 96372; 96375; 96376; G0008; G0009; G0378; J1650; J1885; J3490; J7512; Q9967

== ENCOUNTER 2021-08-18 02:42 | Emergency (ER) | payer SELFPAY ==
[2021-08-18 03:37] LABS: #Basophils 0.1 thou/uL (0.0-0.2); #Eosinphils 0.1 thou/uL (0.0-0.7); #Lymphocytes 3.2 thou/uL (1.20-3.40); #Monocytes 0.8 thou/uL (0.11-0.59); #Neutrophils 5.7 thou/uL (1.40-6.50); %Basophils 0.7 % (0.0-1.0); %Eosinophils 1.4 % (0.0-10.0); %Monocytes 8.6 % (0.0-10.0); %Neutrophils 57.4 % (42.0-75.0); Hemoglobin 13.5 g/dL (12.0-16.0); Mean Corpuscular HGB CONC 33.3 g/dL (32.0-36.0); Mean Corpuscular Hemoglobin 27.3 pg (27.0-31.0); Mean Corpuscular Volume 81.7 fL (78.0-98.0); Mean Platelet Volume 7.3 fL (7.4-10.4); Platelet Count 304 thou/uL (130-400); RBC Distribution Width 12.5 % (11.5-14.5); Red Blood Cell (RBC) Count 4.94 mill/uL (4.20-5.40); White Blood Cell (WBC) Count 9.9 thou/uL (4.8-10.8)
[2021-08-18] MEDS ORDERED: Lorazepam 2 MG/ML VIAL ONE (03:37)
[2021-08-18] MEDS ORDERED: Ketorolac Tromethamine 30 MG/ML VIAL ONE (03:38)
[2021-08-18 03:57] LABS: Anion Gap 11 mmol/L (10-20); BUN (Urea Nitrogen) 16 mg/dL (9.8-20.1); Calc. Creatinine Clearance 0 mL/min (70-130); Carbon Dioxide 27 mmol/L (22-29); Chloride 108 mmol/L (98-107); Potassium 3.4 mmol/L (3.5-5.1); Sodium 143 mmol/L (136-145)
[2021-08-18 03:58] LABS: ALT (SGPT) 11 U/L (8-55); AST (SGOT) 15 U/L (5-34); Alkaline Phosphatase 78 U/L (40-110); Bilirubin, Total 0.8 mg/dL (0.2-1.2); Calcium 9.6 mg/dL (7.8-10.44); Globulin 3.1 g/dL (2.4-3.5); Glucose 97 mg/dL (70-105); Protein, Total 7.1 g/dL (6.0-8.3)
== END 2021-08-18 05:25 | disposition home or self-care (01) ==
LOC: ERS 02:42
DX: R07.2 Precordial pain (principal); M54.9 Dorsalgia, unspecified
CPT/HCPCS: 36415; 71045; 80053; 84484; 85025; 93005; 96374; 96375; J1885; J2060

== ENCOUNTER 2021-08-26 11:44 | Emergency (ER) | payer SELFPAY ==
[2021-08-26] MEDS ORDERED: Aspirin Chewable 81 MG TAB ONE (12:01)
[2021-08-26] MEDS ORDERED: HYDROcodone/Acetaminophen 5/325 mg Tablet ONE (12:40)
[2021-08-26] MEDS ORDERED: Cyclobenzaprine 10 MG TAB ONE (12:41)
[2021-08-26] MEDS ORDERED: Ketorolac Tromethamine 30 MG/ML VIAL ONE (12:41)
== END 2021-08-26 14:05 | disposition home or self-care (01) ==
LOC: ERS 11:44
DX: M54.6 Pain in thoracic spine (principal)
CPT/HCPCS: 72072; 93005; 96372; J1885

== ENCOUNTER 2021-08-31 16:38 | Observation (INO) | payer SELFPAY ==
[2021-08-31 19:21] LABS: #Basophils 0.1 thou/uL (0.0-0.2); #Eosinphils 0.2 thou/uL (0.0-0.7); #Lymphocytes 2.8 thou/uL (1.20-3.40); #Neutrophils 7.9 thou/uL (1.40-6.50); %Basophils 0.8 % (0.0-1.0); %Eosinophils 1.5 % (0.0-10.0); %Lymphocytes 23.4 % (21.0-51.0); %Monocytes 8.2 % (0.0-10.0); %Neutrophils 66.2 % (42.0-75.0); Hemoglobin 13.8 g/dL (12.0-16.0); Mean Corpuscular HGB CONC 32.8 g/dL (32.0-36.0); Mean Corpuscular Hemoglobin 27.4 pg (27.0-31.0); Mean Corpuscular Volume 83.5 fL (78.0-98.0); Mean Platelet Volume 7.4 fL (7.4-10.4); Platelet Count 296 thou/uL (130-400); RBC Distribution Width 12.7 % (11.5-14.5); Red Blood Cell (RBC) Count 5.03 mill/uL (4.20-5.40)
[2021-08-31] MEDS ORDERED: Fentanyl 100 MCG/2 ML VIAL ONE (19:26)
[2021-08-31 19:42] LABS: ALT (SGPT) 47 U/L (8-55); AST (SGOT) 51 U/L (5-34); Albumin 4.1 g/dL (3.5-5.0); Alkaline Phosphatase 100 U/L (40-110); Anion Gap 16 mmol/L (10-20); BUN (Urea Nitrogen) 15 mg/dL (9.8-20.1); Bilirubin, Total 0.7 mg/dL (0.2-1.2); Calc. Creatinine Clearance 0 mL/min (70-130); Calcium 9.4 mg/dL (7.8-10.44); Carbon Dioxide 23 mmol/L (22-29); Chloride 106 mmol/L (98-107); Globulin 3.5 g/dL (2.4-3.5); Glucose 90 mg/dL (70-105); Protein, Total 7.6 g/dL (6.0-8.3); Sodium 141 mmol/L (136-145)
[2021-08-31] MEDS ORDERED: Dexamethasone 10 MG/ML VIAL ONE (22:47)
[2021-08-31] MEDS ORDERED: Acetaminophen 325 MG TAB PO PRN (23:02)
[2021-08-31] MEDS ORDERED: Cyclobenzaprine 10 MG TAB PO SCH (23:15)
[2021-09-01] MEDS: Fludrocortisone Acetate 0.1 MG TAB PO SCH ×2 (00:52→12:09)
[2021-09-01 02:30] VITALS: BMI 31.6
[2021-09-01 04:09] LABS: #Monocytes 0.1 thou/uL (0.11-0.59); #Neutrophils 7.6 thou/uL (1.40-6.50); %Eosinophils 0.4 % (0.0-10.0); %Lymphocytes 11.1 % (21.0-51.0); %Monocytes 1.1 % (0.0-10.0); %Neutrophils 87.4 % (42.0-75.0); Hemoglobin 12.9 g/dL (12.0-16.0); Mean Corpuscular HGB CONC 32.8 g/dL (32.0-36.0); Mean Corpuscular Hemoglobin 27.4 pg (27.0-31.0); Mean Corpuscular Volume 83.6 fL (78.0-98.0); Mean Platelet Volume 7.4 fL (7.4-10.4); Platelet Count 292 thou/uL (130-400); RBC Distribution Width 12.7 % (11.5-14.5); Red Blood Cell (RBC) Count 4.72 mill/uL (4.20-5.40); White Blood Cell (WBC) Count 8.7 thou/uL (4.8-10.8)
[2021-09-01 04:11] LABS: Anion Gap 12 mmol/L (10-20); BUN (Urea Nitrogen) 19 mg/dL (9.8-20.1); Calc. Creatinine Clearance 105 mL/min (70-130); Calcium 8.9 mg/dL (7.8-10.44); Carbon Dioxide 23 mmol/L (22-29); Chloride 107 mmol/L (98-107); Glucose 158 mg/dL (70-105); Sodium 138 mmol/L (136-145)
[2021-09-01 06:36] LABS: Bacteria/HPF None Seen HPF (None Seen); Bilirubin Negative (Negative); Blood, Urine Negative (Negative); Clarity Clear (Clear); Glucose, Urine (Dipstick) Normal (Negative); Ketone, Urine Negative (Negative); Leukocyte Negative Leu/uL (Negative); Nitrite Negative (Negative); Protein, Urine (Dipstick) Negative (Neg-Trace); RBC/HPF 0-3 HPF (0-3); Specific Gravity, Urine 1.024 (1.002-1.036); Squamous Epithelial None Seen HPF (0-3); Urobilinogen Normal mg/dL (Less than 2); WBC/HPF 0-3 HPF (0-3); pH, Urine 6.5 (5.0-9.0)
[2021-09-01 06:44] LABS: Amphetamine Detected (NotDetected); Barbiturates Screen Not Detected (NotDetected); Benzodiazepine Screen Detected (NotDetected); Cocaine Metabolite Screen Not Detected (NotDetected); Methadone Not Detected (NotDetected); Methamphetamine Detected (NotDetected); Opiate Screen Not Detected (NotDetected); Oxycodone Screen Not Detected (NotDetected); Phencyclidine (PCP) Not Detected (NotDetected); THC/Cannabinoid Screen Not Detected (NotDetected); Tricyclic Screen Not Detected (NotDetected)
[2021-09-01] MEDS ORDERED: Lidocaine 5% Patch TD SCH (08:00)
[2021-09-01 08:48] VITALS: BP 121/73; TEMP 97.8
[2021-09-01] MEDS ORDERED: FLU VACC QS2021-22(6MOS UP)/PF 60 MCG/0.5 ML SYRINGE IM ONE (09:00)
[2021-09-01] MEDS ORDERED: predniSONE 1 MG/ML ML PO SCH (09:00)
[2021-09-01] MEDS ORDERED: Magnevist 469MG/ML 20 ML VIAL ONE (11:26)
[2021-09-01] MEDS ORDERED: Cyclobenzaprine 10 MG TAB PO PRN (11:26)
[2021-09-01 16:23] LABS: SARS-CoV-2 PCR by NAA Not Detected (NotDetected)
[2021-09-01] MEDS ORDERED: LIDOCAINE Patch Removal TOP SCH (20:00)
== END 2021-09-01 19:07 | disposition home or self-care (01) ==
LOC: ERS 16:38 → ONC 22:11
PROVIDERS: ADMIT Student in an Organized Health Care Education/Training Program; ATTEND Student in an Organized Health Care Education/Training Program
DX: R53.1 Weakness (principal); R20.0 Anesthesia of skin; M47.812 Spondylosis without myelopathy or radiculopathy, cervical region; M48.02 Spinal stenosis, cervical region; M50.21 Other cervical disc displacement, high cervical region; M51.24 Other intervertebral disc displacement, thoracic region; R32 Unspecified urinary incontinence; R29.6 Repeated falls; E27.1 Primary adrenocortical insufficiency; F31.9 Bipolar disorder, unspecified; F41.9 Anxiety disorder, unspecified; F20.9 Schizophrenia, unspecified; H53.2 Diplopia; G89.29 Other chronic pain; Z20.822 Contact with and (suspected) exposure to COVID-19; Z98.1 Arthrodesis status; Z88.5 Allergy status to narcotic agent; Z91.09 Other allergy status, other than to drugs and biological substances; Z79.52 Long term (current) use of systemic steroids; Z79.899 Other long term (current) drug therapy
CPT/HCPCS: 36415; 72141; 72158; 80048; 80053; 80306; 81001; 84145; 85025; 85652; 86140; 87086; 96374; 96375; A9579; G0378; J1100; J3010; U0003; U0005

== ENCOUNTER 2021-12-20 16:19 | Emergency (ER) | payer SELFPAY ==
[2021-12-20 18:10] LABS: #Basophils 0.1 thou/uL (0.0-0.2); #Eosinphils 0.1 thou/uL (0.0-0.7); #Lymphocytes 2.7 thou/uL (1.20-3.40); #Monocytes 0.6 thou/uL (0.11-0.59); %Basophils 1.1 % (0.0-1.0); %Eosinophils 1.5 % (0.0-10.0); %Lymphocytes 35.9 % (21.0-51.0); %Monocytes 7.7 % (0.0-10.0); %Neutrophils 53.9 % (42.0-75.0); Hemoglobin 13.4 g/dL (12.0-16.0); Mean Corpuscular HGB CONC 30.9 g/dL (32.0-36.0); Mean Corpuscular Hemoglobin 27.2 pg (27.0-31.0); Mean Platelet Volume 6.8 fL (7.4-10.4); Platelet Count 271 thou/uL (130-400); RBC Distribution Width 12.4 % (11.5-14.5); Red Blood Cell (RBC) Count 4.93 mill/uL (4.20-5.40); White Blood Cell (WBC) Count 7.4 thou/uL (4.8-10.8)
[2021-12-20] MEDS ORDERED: Ketorolac Tromethamine 30 MG/ML VIAL ONE (18:19)
[2021-12-20 18:32] LABS: ALT (SGPT) 20 U/L (8-55); AST (SGOT) 21 U/L (5-34); Alkaline Phosphatase 82 U/L (40-110); Anion Gap 13 mmol/L (10-20); BUN (Urea Nitrogen) 13 mg/dL (9.8-20.1); Bilirubin, Total 0.6 mg/dL (0.2-1.2); Calc. Creatinine Clearance 0 mL/min (70-130); Carbon Dioxide 22 mmol/L (22-29); Chloride 104 mmol/L (98-107); Globulin 3.6 g/dL (2.4-3.5); Glucose 81 mg/dL (70-105); Protein, Total 7.6 g/dL (6.0-8.3); Sodium 135 mmol/L (136-145)
[2021-12-20] MEDS ORDERED: Morphine 4 MG/ML VIAL ONE (19:13)
[2021-12-20] MEDS ORDERED: Diazepam 5 MG TAB ONE (19:13)
[2021-12-20] MEDS ORDERED: Ondansetron ODT 4 MG TAB ONE (19:13)
== END 2021-12-20 20:02 | disposition home or self-care (01) ==
LOC: ERS 16:19
DX: S39.012A Strain of muscle, fascia and tendon of lower back, initial encounter (principal); E78.00 Pure hypercholesterolemia, unspecified; E27.1 Primary adrenocortical insufficiency; X50.1XXA Overexertion from prolonged static or awkward postures, initial encounter; Z79.899 Other long term (current) drug therapy
CPT/HCPCS: 36415; 72128; 72131; 72192; 80053; 85025; 96372; J1885; J2270; Q0162

== ENCOUNTER 2022-09-28 20:58 | Emergency (ER) | payer OTHER, SELFPAY ==
[2022-09-28] MEDS ORDERED: Ketorolac Tromethamine 30 MG/ML VIAL ONE (21:39)
[2022-09-28] MEDS ORDERED: Morphine 4 MG/ML VIAL ONE (23:15)
== END 2022-09-28 23:35 | disposition home or self-care (01) ==
LOC: ERS 20:58
DX: S30.0XXA Contusion of lower back and pelvis, initial encounter (principal); E78.00 Pure hypercholesterolemia, unspecified; W08.XXXA Fall from other furniture, initial encounter
CPT/HCPCS: 72100; 72170; 96372; J1885; J2270

== ENCOUNTER 2022-11-12 10:26 | Outpatient (CLI) | payer OTHER | END 2022-11-12 10:27 | disposition home or self-care (01) | LOC: BICCT 10:26 | PROVIDERS: ATTEND Student in an Organized Health Care Education/Training Program | DX: J01.00 Acute maxillary sinusitis, unspecified (principal); K04.7 Periapical abscess without sinus ==

== ENCOUNTER 2022-11-26 13:06 | Outpatient (CLI) | payer OTHER | END 2022-11-26 13:07 | disposition home or self-care (01) | LOC: BICMAMMO 13:06 | PROVIDERS: ATTEND Student in an Organized Health Care Education/Training Program | DX: Z12.31 Encounter for screening mammogram for malignant neoplasm of breast (principal); Z13.820 Encounter for screening for osteoporosis; E27.1 Primary adrenocortical insufficiency; M85.851 Other specified disorders of bone density and structure, right thigh; M85.852 Other specified disorders of bone density and structure, left thigh; N64.89 Other specified disorders of breast; Z80.3 Family history of malignant neoplasm of breast | CPT/HCPCS: 77067; 77080 ==

== ENCOUNTER 2022-11-29 08:00 | Outpatient (CLI) | payer OTHER | END 2022-11-29 08:01 | disposition home or self-care (01) | LOC: TBSIIMAG 08:00 | PROVIDERS: ATTEND Neurological Surgery | DX: M47.12 Other spondylosis with myelopathy, cervical region (principal); M54.16 Radiculopathy, lumbar region; M54.6 Pain in thoracic spine | CPT/HCPCS: 72141; 72146; 72148 ==

== ENCOUNTER 2022-12-02 09:32 | Outpatient (CLI) | payer OTHER | END 2022-12-02 09:33 | disposition home or self-care (01) | LOC: BICMAMMO 09:32 | PROVIDERS: ATTEND Student in an Organized Health Care Education/Training Program | DX: N64.89 Other specified disorders of breast (principal) | CPT/HCPCS: G0279 ==

== ENCOUNTER 2023-01-13 11:04 | Outpatient (CLI) | payer OTHER ==
[2023-01-13 12:47] LABS: Hemoglobin 13.5 g/dL (12.0-15.5); Mean Corpuscular HGB CONC 30.8 g/dL (32.0-36.0); Mean Corpuscular Hemoglobin 25.6 pg (27.0-33.0); Mean Corpuscular Volume 83.1 fl (81.6-98.3); Mean Platelet Volume 10.6 fl (7.4-10.4); Platelet Count 335 10x3/uL (150-450); RBC Distribution Width 14.6 % (11.5-14.5); Red Blood Cell (RBC) Count 5.27 10x6/uL (3.90-5.03); White Blood Cell (WBC) Count 8.4 10x3/uL (3.5-10.5)
[2023-01-13 13:00] LABS: Anion Gap 17 mmol/L (10-20); BUN (Urea Nitrogen) 11 mg/dL (9.8-20.1); Calc. Creatinine Clearance 0 mL/min (70-130); Calcium 9.4 mg/dL (7.8-10.44); Carbon Dioxide 22 mmol/L (22-29); Chloride 107 mmol/L (98-107); Estimated GFR 84; Glucose 87 mg/dL (70-105); Potassium 4.5 mmol/L (3.5-5.1); Sodium 141 mmol/L (136-145)
== END 2023-01-13 11:05 | disposition home or self-care (01) ==
LOC: LABBT 11:04
PROVIDERS: ATTEND Neurological Surgery
DX: Z01.818 Encounter for other preprocedural examination (principal)
CPT/HCPCS: 80048; 85027; 93005; 93010

== ENCOUNTER 2023-01-20 07:21 | Inpatient (IN) | payer OTHER ==
[2023-01-20] MEDS ORDERED: Hydrocortisone Sod Succ/PF 100 mg/2 ml Vial ONE (08:16)
[2023-01-20 08:37] LABS: SARS-CoV-2 NAA Rapid Test Not Detected (NotDetected)
[2023-01-20] MEDS ORDERED: Vancomycin 1 GM VIAL ONE (08:45)
[2023-01-20] MEDS ORDERED: CEFAZOLIN 2 GM VIAL ONE (08:55)
[2023-01-20] MEDS ORDERED: Sodium Chloride 0.9% 100 ML ONE (08:55)
[2023-01-20] MEDS ORDERED: SUGAMMADEX SODIUM 200 MG/2 ML VIAL ONE (08:58)
[2023-01-20] MEDS ORDERED: MINERAL OIL/WHITE PETROLATUM 3.5 GM TUBE ONE (08:58)
[2023-01-20] MEDS ORDERED: fentaNYL PF 100 MCG/2 ML SYRINGE ONE (08:58)
[2023-01-20] MEDS ORDERED: Ketorolac Tromethamine 30 MG/ML VIAL ONE (09:09)
[2023-01-20] MEDS ORDERED: PROPOFOL 200 MG/20 ML VIAL ONE (09:09)
[2023-01-20] MEDS ORDERED: Rocuronium Bromide 10 MG/ML (10ML VIAL) ONE (09:09)
[2023-01-20] MEDS ORDERED: ePHEDrine 50 MG/ML VIAL ONE (09:09)
[2023-01-20] MEDS ORDERED: Dexamethasone 20 MG/5 ML VIAL ONE (09:09)
[2023-01-20] MEDS ORDERED: Lidocaine 1% PF 5 ML VIAL ONE (09:09)
[2023-01-20] MEDS ORDERED: Ondansetron PF 4 MG/2 ML Vial ONE (09:09)
[2023-01-20] MEDS ORDERED: HYDROmorphone 2 MG/ML VIAL ONE (10:30)
[2023-01-20] MEDS ORDERED: Mag-Al 1200 mg/1200 mg/30 ML UDCUP PO PRN (10:32)
[2023-01-20] MEDS ORDERED: Acetaminophen 325 MG TAB PO PRN (10:32)
[2023-01-20] MEDS ORDERED: Morphine 2 MG/ML VIAL SLOW IVP PRN (10:32)
[2023-01-20] MEDS ORDERED: traMADol HCl 50 MG TAB PO PRN (10:32)
[2023-01-20] MEDS ORDERED: Ondansetron PF 4 MG/2 ML Vial IVP PRN (10:32)
[2023-01-20] MEDS ORDERED: Milk Of Magnesia 30 ML UDCUP PO PRN (10:32)
[2023-01-20] MEDS ORDERED: Promethazine 25 MG TAB PO PRN (10:32)
[2023-01-20] MEDS ORDERED: FENTANYL 50 MCG/ML 1 ML VIAL ONE ×4 (10:50→12:26)
[2023-01-20] MEDS ORDERED: Promethazine HCl 25 MG/ML VIAL ONE (11:54)
[2023-01-20] MEDS ORDERED: Dexamethasone 4 mg/ml Vial ONE (12:19)
[2023-01-20 14:11] VITALS: BMI 36.7
[2023-01-20] MEDS: HYDROcodone/Acetaminophen 10/325 mg Tablet PO PRN ×2 (15:50→20:26)
[2023-01-20] MEDS: Sodium Chloride 0.9% 1,000 ML IV SCH (15:52)
[2023-01-20] MEDS: Fludrocortisone Acetate 0.1 MG TAB PO SCH ×2 (16:02→20:29)
[2023-01-20] MEDS: Gabapentin 300 MG CAP PO SCH ×2 (16:13→20:28)
[2023-01-20] MEDS: CEFAZOLIN 2 GM in Sodium Chloride 0.9% 100 ML IVPB SCH (17:54)
[2023-01-20] MEDS: hydrOXYzine Pamoate 25 mg Capsule PO SCH ×3 (17:55→22:46)
[2023-01-20] MEDS: Aripiprazole 10 MG TAB PO SCH (20:29)
[2023-01-20] MEDS: predniSONE 5 MG TAB PO SCH (20:29)
[2023-01-20] MEDS: Cyclobenzaprine 10 MG TAB PO PRN (22:46)
[2023-01-21] MEDS: HYDROcodone/Acetaminophen 10/325 mg Tablet PO PRN ×5 (00:33→19:04)
[2023-01-21] MEDS: CEFAZOLIN 2 GM in Sodium Chloride 0.9% 100 ML IVPB SCH ×3 (00:35→21:25)
[2023-01-21] MEDS: hydrOXYzine Pamoate 25 mg Capsule PO SCH ×4 (04:08→21:59)
[2023-01-21] MEDS: predniSONE 5 MG TAB PO SCH ×2 (08:30→20:05)
[2023-01-21] MEDS: Sodium Chloride 0.9% 1,000 ML IV SCH ×2 (08:31→20:25)
[2023-01-21] MEDS: Bupropion 150 MG XL TAB PO SCH (08:31)
[2023-01-21] MEDS: PARoxetine 20 MG TAB PO SCH (08:31)
[2023-01-21] MEDS: Fludrocortisone Acetate 0.1 MG TAB PO SCH ×3 (08:34→20:05)
[2023-01-21] MEDS ORDERED: FLU VACC QS2022-23(6MOS UP)/PF 60 MCG/0.5 ML SYRINGE IM ONE (09:00)
[2023-01-21] MEDS: Gabapentin 300 MG CAP PO SCH ×3 (11:51→20:05)
[2023-01-21] MEDS: Aripiprazole 10 MG TAB PO SCH (20:06)
[2023-01-22] MEDS: hydrOXYzine Pamoate 25 mg Capsule PO SCH ×4 (03:53→22:37)
[2023-01-22] MEDS: HYDROcodone/Acetaminophen 10/325 mg Tablet PO PRN ×2 (05:42→15:08)
[2023-01-22] MEDS: CEFAZOLIN 2 GM in Sodium Chloride 0.9% 100 ML IVPB SCH ×3 (05:43→21:03)
[2023-01-22] MEDS: Gabapentin 300 MG CAP PO SCH ×3 (08:42→20:00)
[2023-01-22] MEDS: Fludrocortisone Acetate 0.1 MG TAB PO SCH ×3 (08:42→20:02)
[2023-01-22] MEDS: Bupropion 150 MG XL TAB PO SCH (08:42)
[2023-01-22] MEDS: predniSONE 5 MG TAB PO SCH ×2 (08:43→20:00)
[2023-01-22] MEDS: PARoxetine 20 MG TAB PO SCH (08:43)
[2023-01-22] MEDS: Sodium Chloride 0.9% 1,000 ML IV SCH (10:25)
[2023-01-22] MEDS: Aripiprazole 10 MG TAB PO SCH (20:00)
[2023-01-23] MEDS: Sodium Chloride 0.9% 1,000 ML IV SCH (00:11)
[2023-01-23] MEDS: HYDROcodone/Acetaminophen 10/325 mg Tablet PO PRN ×2 (00:16→05:57)
[2023-01-23] MEDS: hydrOXYzine Pamoate 25 mg Capsule PO SCH ×2 (04:30→08:53)
[2023-01-23] MEDS: CEFAZOLIN 2 GM in Sodium Chloride 0.9% 100 ML IVPB SCH (04:59)
[2023-01-23 08:14] VITALS: BP 101/62; TEMP 98.1
[2023-01-23] MEDS: Cyclobenzaprine 10 MG TAB PO PRN (08:51)
[2023-01-23] MEDS: Fludrocortisone Acetate 0.1 MG TAB PO SCH (08:51)
[2023-01-23] MEDS: Gabapentin 300 MG CAP PO SCH (08:52)
[2023-01-23] MEDS: Bupropion 150 MG XL TAB PO SCH (08:52)
[2023-01-23] MEDS: predniSONE 5 MG TAB PO SCH (08:53)
[2023-01-23] MEDS: PARoxetine 20 MG TAB PO SCH (08:53)
== END 2023-01-23 15:13 | DRG 460 ==
LOC: SURG A 07:21 → MSONC 13:58 → EDSTATUS 16:11
PROVIDERS: ADMIT Neurological Surgery; ATTEND Neurological Surgery
PROC: 0SG0071 Fusion of Lumbar Vertebral Joint with Autologous Tissue Substitute, Posterior Approach, Posterior Column, Open Approach (ICD-10-PCS; principal; 2023-01-20)
PROC: 01NB0ZZ Release Lumbar Nerve, Open Approach (ICD-10-PCS; 2023-01-20)
PROC: 0QP004Z Removal of Internal Fixation Device from Lumbar Vertebra, Open Approach (ICD-10-PCS; 2023-01-20)
DX: M48.062 Spinal stenosis, lumbar region with neurogenic claudication (principal); Z20.822 Contact with and (suspected) exposure to COVID-19; Z88.6 Allergy status to analgesic agent; Z88.8 Allergy status to other drugs, medicaments and biological substances; G89.29 Other chronic pain
CPT/HCPCS: 72131; C1713; C1768; C1776; J1100; J1170; J1720; J1885; J2405; J2550; J2704; J3010; J3370; J3490; J7050; J7512; Q0177; U0002

== ENCOUNTER 2023-02-12 09:46 | Outpatient (CLI) | payer OTHER | END 2023-02-12 09:47 | disposition home or self-care (01) | LOC: TBSIIMAG 09:46 | PROVIDERS: ATTEND Neurological Surgery | DX: M48.062 Spinal stenosis, lumbar region with neurogenic claudication (principal); M47.816 Spondylosis without myelopathy or radiculopathy, lumbar region; Z98.890 Other specified postprocedural states | CPT/HCPCS: 72100 ==

== ENCOUNTER 2023-07-06 20:01 | Emergency (ER) | payer OTHER ==
[2023-07-06 20:40] LABS: #Basophils 0.1 thou/uL (0.0-0.2); #Monocytes 0.8 thou/uL (0.11-0.59); #Neutrophils 6.5 thou/uL (1.40-6.50); %Basophils 0.5 % (0.0-1.0); %Eosinophils 0.3 % (0.0-10.0); %Lymphocytes 29.6 % (21.0-51.0); %Monocytes 7.6 % (0.0-10.0); %Neutrophils 61.5 % (42.0-75.0); Hematocrit 45.2 % (36.0-47.0); Hemoglobin 14.2 g/dL (12.0-16.0); Mean Corpuscular HGB CONC 31.4 g/dL (32.0-36.0); Mean Corpuscular Hemoglobin 25.6 pg (27.0-31.0); Mean Corpuscular Volume 81.6 fl (78.0-98.0); Mean Platelet Volume 9.7 fL (7.4-10.4); Platelet Count 359 10x3/uL (130-400); RBC Distribution Width 15.9 % (11.5-14.5); Red Blood Cell (RBC) Count 5.54 mill/uL (4.20-5.40); White Blood Cell (WBC) Count 10.6 10x3/uL (4.8-10.8)
[2023-07-06] MEDS ORDERED: predniSONE 20 MG TAB ONE (20:42)
[2023-07-06] MEDS ORDERED: Aripiprazole 10 MG TAB PO SCH (21:00)
[2023-07-06] MEDS ORDERED: PARoxetine 20 MG TAB PO SCH (21:00)
[2023-07-06] MEDS ORDERED: Bupropion 150 MG XL TAB PO SCH (21:00)
[2023-07-06 21:06] LABS: Troponin I Less than 0.010 ng/mL (< 0.028)
[2023-07-06 21:08] LABS: ALT (SGPT) 16 U/L (8-55); AST (SGOT) 22 U/L (5-34); Albumin 4.1 g/dL (3.5-5.0); Alkaline Phosphatase 84 U/L (40-110); Anion Gap 13 mmol/L (10-20); BUN (Urea Nitrogen) 11 mg/dL (9.8-20.1); Bilirubin, Total 0.5 mg/dL (0.2-1.2); Calc. Creatinine Clearance 0 mL/min (70-130); Calcium 9.7 mg/dL (7.8-10.44); Carbon Dioxide 23 mmol/L (22-29); Chloride 109 mmol/L (98-107); Estimated GFR 88; Globulin 3.6 g/dL (2.4-3.5); Glucose 87 mg/dL (70-105); Lipase 34 U/L (8-78); Potassium 3.8 mmol/L (3.5-5.1); Protein, Total 7.7 g/dL (6.0-8.3); Sodium 141 mmol/L (136-145)
[2023-07-06] MEDS ORDERED: fentaNYL 50 mcg/mL 1 mL Vial ONE (21:09)
== END 2023-07-06 22:27 | disposition home or self-care (01) ==
LOC: ERS 20:01
DX: R07.9 Chest pain, unspecified (principal)
CPT/HCPCS: 36415; 71045; 80053; 83690; 84484; 85025; 93005; 96374; J3010; J7512

== ENCOUNTER 2023-12-12 10:10 | Outpatient (CLI) | payer OTHER | END 2023-12-12 10:11 | disposition home or self-care (01) | LOC: BICMAMMO 10:10 | PROVIDERS: ATTEND Student in an Organized Health Care Education/Training Program | DX: Z12.31 Encounter for screening mammogram for malignant neoplasm of breast (principal); Z80.3 Family history of malignant neoplasm of breast | CPT/HCPCS: 77067 ==